=== PATIENT | male | born 1930 | race Caucasian/White ===

== ENCOUNTER → 2019-02-04 | Day surgery (SDC) | payer OTHER ==
[~2019-02-04] MED LIST: ACETAMINOPHEN 325 MG TABLET PO PRN; ALBUTEROL SULFATE 2.5 MG/3 ML NEBU. NEB PRN; ASPI-630 PO; ATOR10TA60 PO; FOLI1TAB16 PO; GLIP5TAB10 PO; IV RINGERS SOLUTION,LACTATED 1,000 ML IV SCH; ONDANSETRON PF 4 MG/2 ML VIAL. IV PRN; PROPOFOL 10,000 MCG/ML (20ML) VIAL IV ONE; PROPOFOL 40 ML IV ONE; RAMI10CA34 PO; TRIA1CAP3 PO; diphenhydrAMINE 50 MG/ML VIAL IV PRN
[2019-02-04 14:39] VITALS: BP 159/83
--- NOTE | 2019-02-08 16:06 | PATHOLOGY ---
[facility] Accession Number: [id number] . 01 Material submitted: . stomach - ANTRUM . 01 Clinical history: . Pre-OP DX: Iron deficiency anemia Post-OP DX: Same, antrum gastritis . 02 Diagnosis: Gastric biopsy, antrum: - Chronic gastritis, moderate, with Helicobacter organisms identified. (JPM:[facility] 02/08/2019) P/02/08/2019 . 02 Comment: Sections of the gastric antral biopsy show congestion and moderate chronic inflammation. There are scattered admixed eosinophils. A properly controlled immunoperoxidase for Helicobacter reveals scattered small numbers of Helicobacter organisms. There is no evidence of malignancy. (JPM:[facility] 02/08/2019) . Special stain performed: Immunoperoxidase for Helicobacter . 02 Electronically signed: . Andrews Spain MD, Pathologist NPI- [id number] . 01 Gross description: . Received in formalin labeled "Mendieta, Pedro, antrum BX," is a single segment of sevilla soft tissue measuring 0.3 cm in maximum dimension. The specimen is entirely submitted in cassette A1. (TSD; 02/07/2019) TOB/TOB . 02 Pathologist provided ICD-10: K29.50, B96.81 . 02 CPT . 916292, X43218 Specimen Comment: A courtesy copy of this report has been sent to Specimen Comment: [phone], . Specimen Comment: Report sent to / DR SANTOS Performed at: 01 [facility] [address], [place], [place] [id number] MD Amador Rawls MD Phone: [phone] Performed at: 02 [facility] [address], [place] [id number] MD Andrews Spain MD Phone: [phone]
== END ==
LOC: SURG 10:49
PROVIDERS: ATTEND Internal Medicine Gastroenterology
DX: K57.30 Diverticulosis of large intestine without perforation or abscess without bleeding (principal); K29.70 Gastritis, unspecified, without bleeding; B96.81 Helicobacter pylori [H. pylori] as the cause of diseases classified elsewhere; K44.9 Diaphragmatic hernia without obstruction or gangrene; K21.9 Gastro-esophageal reflux disease without esophagitis; F32.9 Major depressive disorder, single episode, unspecified; M19.90 Unspecified osteoarthritis, unspecified site; E11.9 Type 2 diabetes mellitus without complications; Z79.899 Other long term (current) drug therapy; Z79.82 Long term (current) use of aspirin; Z79.84 Long term (current) use of oral hypoglycemic drugs; Z98.890 Other specified postprocedural states; Z90.49 Acquired absence of other specified parts of digestive tract
CPT/HCPCS: 43239; 45378; 88305; 88342; J2704; J7120